=== PATIENT | female | born 1950 | race Caucasian/White ===

== ENCOUNTER 2018-12-09 00:08 | Inpatient (IN) | payer MEDICARE ==
[2018-12-09] MEDS ORDERED: NALOXONE 0.4 MG/ML 1 ML VIAL IV PRN (00:29)
--- NOTE | 2018-12-09 00:29 | ED ---
Arrhythmia/Palpitations HPI - General Stated Complaint: Chest Pain/ AFib Time Seen by Provider: 12/09/18 00:08 Source: patient, RN/MD, EMS, RN notes reviewed, old records reviewed Mode of arrival: EMS - History of Present Illness Initial Comments: This is a 68-year-old female who was transferred from [facility] after she was evaluated found have atrial fibrillation with rapid ventricular resp onse. She did respond to fluids. Her rate did drop to about 90 bpm but she was still in atrial fibrillation she was having episodes of chest pain. She did eat a "edible cookie" which has marijuana in it. She denies any other drugs or alcohol at this time. This is not new to her she states. She states she did have some chest pain and route currently none. MD Complaint: rapid heart beat, palpitations Review of Systems ROS Statement: Those systems with pertinent positive or pertinent negative responses have been documented in the HPI. ROS Other: All systems not noted in ROS Statement are negative. General Exam - General Exam Comments Initial Comments: This is a well-developed well-nourished awake alert oriented 3 female General appearance: alert, in no apparent distress Head exam: Present: atraumatic, normocephalic, normal inspection Eye exam: Present: normal appearance, PERRL, EOMI. Absent: scleral icterus, conjunctival injection, periorbital swelling ENT exam: Present: normal exam, mucous membranes moist Neck exam: Present: normal inspection. Absent: tenderness, meningismus, lymphadenopathy Respiratory exam: Present: normal lung sounds bilaterally. Absent: respiratory distress, wheezes, rales, rhonchi, stridor Cardiovascular Exam: Present: irregular rhythm. Absent: systolic murmur, diastolic murmur, rubs, gallop, clicks GI/Abdominal exam: Present: soft, normal bowel sounds. Absent: distended, tenderness, guarding, rebound, rigid Extremities exam: Present: normal inspection, full ROM, normal capillary refill. Absent: tenderness, pedal edema, joint swelling, calf tenderness Back exam: Present: normal inspection Neurological exam: Present: alert, oriented X3, CN II-XII intact Psychiatric exam: Present: normal affect, normal mood Skin exam: Present: warm, dry, intact, normal color. Absent: rash EKG Findings - EKG Results: EKG: interpreted by NARGIS (Patient does demonstrate atrial fibrillation rate 75 QRS 84 QT since QTC 360/410 minimal voltage criteria for LVH this is compared with the EKG sent from the sending facility) Medical Decision Making - Medical Decision Making Did review the imaging as well as the materials from the hospital I had previous ly discuss the case with Dr. Pacheco patient will be admitted with cardiology consultation. Disposition Clinical Impression: Atrial fibrillation, Rapid atrial fibrillation, Chest pain Disposition: ADMITTED IP TO THIS HOSP Condition: Stable Referrals: None,Stated [Primary Care Provider] - 1-2 days
[2018-12-09] MEDS ORDERED: NITROGLYCERIN SL TABS 0.4 MG TAB SUBLINGUAL PRN (00:36)
[2018-12-09] MEDS: SODIUM CHLORIDE 0.9% 1,000 ML IV SCH ×2 (01:00→22:39)
[2018-12-09 08:49] LABS: Basophils % (A) 0 %; Eosinophils # (A) 0.1 k/uL (0-0.7); Eosinophils % (A) 2 %; HCT 37.6 % (34.0-46.0); HGB 11.7 gm/dL (11.4-16.0); Hypochromasia Slight; Lymphocytes # (A) 2.3 k/uL (1.0-4.8); Lymphocytes % (A) 39 %; MCH 27.6 pg (25.0-35.0); MCHC 31.2 g/dL (31.0-37.0); MCV 88.5 fL (80.0-100.0); Mean Platelet Volume 7.3; Monocytes # (A) 0.3 k/uL (0-1.0); Monocytes % (A) 5 %; Neutrophils % (A) 51 %; Platelet Count 204 k/uL (150-450); RBC 4.25 m/uL (3.80-5.40); RDW 13.1 % (11.5-15.5); WBC 5.9 k/uL (3.8-10.6)
[2018-12-09 08:54] LABS: African American GFR (CKD) >90 (>60 ml/min/1.73 sqM); Anion Gap 5 mmol/L; Blood Urea Nitrogen 16 mg/dL (7-17); Calcium 9.3 mg/dL (8.4-10.2); Carbon Dioxide 30 mmol/L (22-30); Chloride 107 mmol/L (98-107); Glucose 98 mg/dL (74-99); Non-African American GFR(CKD) 82 (>60 ml/min/1.73 sqM); Potassium 4.2 mmol/L (3.5-5.1); Sodium 142 mmol/L (137-145)
[2018-12-09] MEDS ORDERED: ENOXAPARIN 80 MG/0.8 ML SYRINGE SQ SCH (09:00)
[2018-12-09] MEDS ORDERED: ASPIRIN 325 MG TAB PO SCH (09:00)
--- NOTE | 2018-12-09 10:01 | P.CRDCN ---
History of Present Illness Consult date: 12/09/18 Requesting physician: Rebeca Ferris Consult reason: atrial fibrillation Chief complaint: Generalized body aches History of present illness: This is a 68-year-old female with history of fibromyalgia, she also states she has history of hypertension but does not take any medication for this , she is a nondiabetic, no hyperlipidemia, nonsmoker, she does also have history of rheumatoid arthritis. According to the patient, she ate a cookie that had marijuana and its, following that she became very dizzy and lightheaded, developed some shortness of breath, for this reason went to the hospital and [place] for further evaluation and treatment. Her blood pressure on arrival here was 138/80, heart rate 100, respirations 18, afebrile. Urinalysis was performed which came back to be negative. Drug screen was performed which came back to be negative. Sodium 139, potassium 3.4, chloride 103, CO2 28, BUN 20, creatinine 0.9, troponin 0.017. Magnesium 1.8, white blood cell count 7.6, hemoglobin 12.3, platelet count 229. EKG performed at [place] showed atrial fibrillation with a moderately rapid ventricular response, occasional PVCs. Subsequent EKG continued to show atrial fibrillation. White blood cell count 5.9, hemoglobin 11.7, platelet 204, sodium 142, potassium 4.2, BUN 16, creatinine 0.7. Troponin 0.012, 0.012. Patient denies any prior history of atrial fibrillation Past Medical History Past Medical History: Chest Pain / Angina, Hypertension, Rheumatoid Arthritis (RA) Additional Past Medical History / Comment(s): Afib ( 12/2018), fibromyalgia, chronic back pain History of Any Multi-Drug Resistant Organisms: None Reported Past Surgical History: Tubal Ligation Additional Past Surgical History / Comment(s): maurice cataract removal Smoking Status: Former smoker - Past Family History Mother Family Medical History: Congestive Heart Failure (CHF) Additional Family Medical History / Comment(s): "her body shuts down" Medications and Allergies Home Medications Medication Instructions Recorded Confirmed Type Naproxen Sodium [Aleve] 220 mg PO BID PRN 12/09/18 12/09/18 History Allergies Allergy/AdvReac Type Severity Reaction Status Date / Time aspirin AdvReac Nausea & Verified 12/09/18 09:07 Vomiting & Diarrhea ibuprofen [From Motrin] AdvReac Nausea & Verified 12/09/18 09:07 Vomiting & Diarrhea Physical Exam Vitals: Vital Signs Temp Pulse Pulse Resp BP BP Pulse Ox 12/09/18 08:15 97.5 F L 72 16 146/70 95 12/09/18 04:00 97.5 F L 64 18 114/70 95 12/09/18 03:06 97.1 F L 73 18 158/73 97 12/09/18 02:40 98.3 F 78 18 130/82 69 L 12/09/18 01:40 80 18 147/104 96 12/09/18 00:40 92 18 137/100 97 12/09/18 00:15 97.9 F 78 18 144/95 97 Intake and Output 12/08/18 12/09/18 12/09/18 22:59 06:59 14:59 Intake Total 240 0 Balance 240 0 Intake: Intake, IV Titration 240 Amount Sodium Chloride 0.9% 1, 240 000 ml @ 80 mls/hr IV . [id number] [facility] Rx#:[id number] Oral 0 Other: Weight 74.9 kg PHYSICAL EXAMINATION: GENERAL: 68-year-old female in no acute chest examination HEENT: Head is atraumatic, normocephalic. Pupils equal, round. Sclera anicteric. Conjunctiva are clear. Mucous membranes of the mouth are moist. Neck is supple. There is no elevated jugular venous pressure. No carotid bruit is heard. HEART EXAMINATION: [Heart S1 and S2 irregularly irregular CHEST EXAMINATION:[Lungs are clear to auscultation and precussion. No chest wall tenderness is noted on palpation or with deep breathing.] ABDOMEN: [Soft, nontender. Bowel sounds are heard. No organomegaly noted] EXTREMITIES:[2+ peripheral pulses with no evidence of peripheral edema and no calf tenderness noted] NEUROLOGIC [atient is awake, alert and oriented 3. . Results 12/09/18 08:20 12/09/18 08:20 Cardiac Enzymes 12/09/18 12/09/18 Range/Units 01:25 08:20 Troponin I <0.012 <0.012 (0.000-0.034) ng/mL CBC 12/09/18 Range/Units 08:20 WBC 5.9 (3.8-10.6) k/uL RBC 4.25 (3.80-5.40) m/uL Hgb 11.7 (11.4-16.0) gm/dL Hct 37.6 (34.0-46.0) % Plt Count 204 (150-450) k/uL Comprehensive Metabolic Panel 12/09/18 Range/Units 08:20 Sodium 142 (137-145) mmol/L Potassium 4.2 (3.5-5.1) mmol/L Chloride 107 (98-107) mmol/L Carbon Dioxide 30 (22-30) mmol/L BUN 16 (7-17) mg/dL Creatinine 0.76 (0.52-1.04) mg/dL Glucose 98 (74-99) mg/dL Calcium 9.3 (8.4-10.2) mg/dL Current Medications Generic Name Dose Route Start Last Admin Trade Name Freq PRN Reason Stop Dose Admin Aspirin 325 mg 12/09/18 09:00 Aspirin PO DAILY JARRED Enoxaparin Sodium 70 mg 12/09/18 09:00 Lovenox SQ Q12HR JARRED Sodium Chloride 1,000 mls @ 80 mls/hr 12/09/18 00:30 12/09/18 01:00 Saline 0.9% IV 80 mls/hr .[id number] JARRED Administration Naloxone HCl 0.2 mg 12/09/18 00:29 Narcan IV Q2M PRN Opioid Reversal Nitroglycerin 0.4 mg 12/09/18 00:36 Nitrostat SUBLINGUAL Q5M PRN Chest Pain Intake and Output 12/08/18 12/09/18 12/09/18 22:59 06:59 14:59 Intake Total 240 0 Balance 240 0 Intake: Intake, IV Titration 240 Amount Sodium Chloride 0.9% 1, 240 000 ml @ 80 mls/hr IV . [id number] JARRED Rx#:[id number] Oral 0 Other: Weight 74.9 kg 12/09/18 08:20 12/09/18 08:20 EKG Interpretations (text) EKG shows atrial fibrillation with moderately rapid ventricular response Assessment and Plan Plan: Assessment and plan #1 persistent atrial fibrillation, appears to be of new onset #2 hypertension, untreated #3 marijuanna use #4 fibromyalgia #5 rheumatoid arthritis Plan We will obtain an echocardiogram with Doppler study as well as a TSH level. We will look into coverage for anticoagulation, discontinue the aspirin. Check TSH level. Initiate low-dose beta neftali. Further recommendations to follow. DNP note has been reviewed, I agree with a documented findings and plan of care. Patient was seen and examined.
[2018-12-09] MEDS: METOPROLOL TARTRATE 25 MG TAB PO SCH ×2 (11:24→20:02)
[2018-12-09] MEDS: APIXABAN 5 MG TAB PO SCH ×2 (11:25→20:02)
[2018-12-09] MEDS ORDERED: LORATADINE-PSEUDOEPH 5-120 MG 1 EACH TAB.ER.12H PO PRN (12:14)
[2018-12-09] MEDS: IBUPROFEN 400 MG TAB PO SCH ×2 (16:58→22:39)
--- NOTE | 2018-12-09 17:04 | P.HPIM ---
History of Present Illness H&P Date: 12/09/18 68-year-old female with history of fibromyalgia, she also states she has history of hypertension but does not take any medication for this, she is a nondiabetic, no hyperlipidemia, nonsmoker, she does also have history of rheumatoid arthritis. According to the patient, she ate a cookie that had marijuana and its, following that she became very dizzy and lightheaded, developed some shortness of breath, for this reason went to the hospital and [place] for further evaluation and treatment. Her blood pressure on arrival here was 138/80, heart rate 100, respirations 18, afebrile. Urinalysis was performed which came back to be negative. Drug screen was performed which came back to be negative. Sodium 139, potassium 3.4, chloride 103, CO2 28, BUN 20, creatinine 0.9, troponin 0.017. Magnesium 1.8, white blood cell count 7.6, hemoglobin 12.3, platelet count 229. EKG performed at [place] showed atrial fibrillation with a moderately rapid ventricular response, occasional PVCs. Subsequent EKG continued to show atrial fibrillation. White blood cell count 5.9, hemoglobin 11.7, platelet 204, sodium 142, potassium 4.2, BUN 16, creatinine 0.7. Troponin 0.012, 0.012. Patient denies any prior history of atrial fibrillation Patient was started on IV Cardizem at outlying facility which was later discontinued with slowing of heart rate; patient was seen by cardiology and was recommended to be started on beta blockers and anticoagulation and echocardiogram for LV functioning Review of Systems Constitutional: Denies chills, Denies fever Eyes: denies blurred vision, denies decreased vision, denies loss of vision Ears: deny: decreased hearing Ears, nose, mouth and throat: Denies bleeding gums, Denies epistaxis, Denies sore throat Cardiovascular: Reports chest pain, Denies shortness of breath Respiratory: Denies cough with sputum Gastrointestinal: Denies abdominal pain, Denies nausea, Denies vomiting Genitourinary: Denies dysuria, Denies hematuria Musculoskeletal: Denies arm numbness/tingling, Denies frequent falls Past Medical History Past Medical History: Chest Pain / Angina, Hypertension, Rheumatoid Arthritis (RA) Additional Past Medical History / Comment(s): Afib ( 12/2018), fibromyalgia, chronic back pain History of Any Multi-Drug Resistant Organisms: None Reported Past Surgical History: Tubal Ligation Additional Past Surgical History / Comment(s): maurice cataract removal Smoking Status: Former smoker - Past Family History Mother Family Medical History: Congestive Heart Failure (CHF) Additional Family Medical History / Comment(s): "her body shuts down" Medications and Allergies Home Medications Medication Instructions Recorded Confirmed Type Naproxen Sodium [Aleve] 220 mg PO BID PRN 12/09/18 12/09/18 History Allergies Allergy/AdvReac Type Severity Reaction Status Date / Time aspirin AdvReac Nausea & Verified 12/09/18 09:07 Vomiting & Diarrhea ibuprofen [From Motrin] AdvReac Nausea & Verified 12/09/18 09:07 Vomiting & Diarrhea Physical Exam Vitals: Vital Signs Temp Pulse Pulse Resp BP BP Pulse Ox 12/09/18 08:15 97.5 F L 72 16 146/70 95 12/09/18 04:00 97.5 F L 64 18 114/70 95 12/09/18 03:06 97.1 F L 73 18 158/73 97 12/09/18 02:40 98.3 F 78 18 130/82 69 L 12/09/18 01:40 80 18 147/104 96 12/09/18 00:40 92 18 137/100 97 12/09/18 00:15 97.9 F 78 18 144/95 97 Intake and Output 12/08/18 12/09/18 12/09/18 22:59 06:59 14:59 Intake Total 240 0 Balance 240 0 Intake: Intake, IV Titration 240 Amount Sodium Chloride 0.9% 1, 240 000 ml @ 80 mls/hr IV . [id number] [facility] Rx#:[id number] Oral 0 Other: # Voids 1 # Bowel Movements 1 Weight 74.9 kg GENERAL: 68-year-old female in no acute chest examination HEENT: Head is atraumatic, normocephalic. Pupils equal, round. Sclera anicteric. Conjunctiva are clear. Mucous membranes of the mouth are moist. Neck is supple. There is no elevated jugular venous pressure. No carotid bruit is heard. HEART EXAMINATION: [Heart S1 and S2 irregularly irregular CHEST EXAMINATION:[Lungs are clear to auscultation and precussion. No chest wall tenderness is noted on palpation or with deep breathing.] ABDOMEN: [Soft, nontender. Bowel sounds are heard. No organomegaly noted] EXTREMITIES:[2+ peripheral pulses with no evidence of peripheral edema and no calf tenderness noted] NEUROLOGIC [atient is awake, alert and oriented 3. Results CBC & Chem 7: 12/09/18 08:20 12/09/18 08:20 Thrombosis Risk Factor Assmnt - Choose All That Apply Any of the Below Risk Factors Present?: No Each Risk Factor Represents 2 Points: Age 61-74 years Other congenital or acquired thrombophilia - If yes, enter type in comment: No Thrombosis Risk Factor Assessment Total Risk Factor Score: 2 Thrombosis Risk Factor Assessment Level: Low Risk Assessment and Plan Assessment: 1. A. fib with RVR; - Metoprolol tartrate 25 mg twice a day; anticoagulation in form of Eliquis 5 mg twice a day 2. Chest pain possibly secondary to 1 versus acute coronary syndrome - Possibly secondary to atrial fibrillation with RVR; troponin has been trended and has been unremarkable; cardiology is following; echocardiogram is done and results are pending; further recommendations after echo results are available 3. Substance abuse; consult [employer] for outpatient resources 4. Hypertension; Lopressor 25 mg twice a day; monitor blood pressure closely and adjust medication if needed 5. History of rheumatoid arthritis/ chronic back pain - Patient takes Aleve 220 mg twice a day 6. DVT prophylaxis; systemic anticoagulation CODE STATUS; full code Time with Patient: Greater than 30
--- NOTE | 2018-12-09 19:31 | ECHOF ---
Referral Reason:afib MEASUREMENTS -------- HEIGHT: 160.0 cm WEIGHT: 74.8 kg BP: IVSd: 1.1 cm (0.6 - 1.1) LVIDd: 3.5 cm (3.9 - 5.3) LVPWd: 1.0 cm (0.6 - 1.1) IVSs: 1.7 cm LVIDs: 2.2 cm LVPWs: 1.4 cm Ao Diam: 2.7 cm (2.0 - 3.7) AV Cusp: 1.9 cm (1.5 - 2.6) LA Diam: 3.6 cm (2.7 - 3.8) RAP: 5.00 mmHg RVSP: 28.15 mmHg FINDINGS -------- Atrial fibrillation. This was a technically difficult study with suboptimal views. The left ventricular size is normal. There is mild concentric left ventricular hypertrophy. Overa ll left ventricular systolic function is normal with, an EF between 55 - 60 %. The right ventricle is normal in size. The left atrial size is normal. The right atrial size is normal. Lumason used The aortic valve is trileaflet and appears structurally normal. The mitral valve is normal. There is trace mitral regurgitation. Trace tricuspid regurgitation present. Right ventricular systolic pressure is normal at < 35 mmHg. There is no pulmonic regurgitation present. The aortic root size is normal. Normal inferior vena cava with normal inspiratory collapse consistent with estimated right atrial pre ssure of 5 mmHg. There is no pericardial effusion. CONCLUSIONS -------- 1. Atrial fibrillation. 2. This was a technically difficult study with suboptimal views. 3. The left ventricular size is normal. 4. There is mild concentric left ventricular hypertrophy. 5. Overall left ventricular systolic function is normal with, an EF between 55 - 60 %. 6. The right ventricle is normal in size. 7. The left atrial size is normal. 8. The right atrial size is normal. 9. Lumason used 10. The aortic valve is trileaflet and appears structurally normal. 11. The mitral valve is normal. 12. There is trace mitral regurgitation. 13. Trace tricuspid regurgitation present. 14. Right ventricular systolic pressure is normal at < 35 mmHg. 15. There is no pulmonic regurgitation present. 16. The aortic root size is normal. 17. Normal inferior vena cava with normal inspiratory collapse consistent with estimated right atrial pressure of 5 mmHg. 18. There is no pericardial effusion. [employer]ISHER: Linda Skaggs RDCS
[2018-12-09] MEDS ORDERED: ACETAMINOPHEN TAB 325 MG TAB PO PRN (22:38)
[2018-12-10] MEDS: SODIUM CHLORIDE 0.9% 1,000 ML IV SCH (05:42)
[2018-12-10 07:00] LABS: Basophils % (A) 0 %; Eosinophils # (A) 0.1 k/uL (0-0.7); Eosinophils % (A) 3 %; HCT 37.2 % (34.0-46.0); HGB 11.6 gm/dL (11.4-16.0); Hypochromasia Slight; Lymphocytes % (A) 42 %; MCH 27.8 pg (25.0-35.0); MCHC 31.3 g/dL (31.0-37.0); MCV 88.9 fL (80.0-100.0); Mean Platelet Volume 7.3; Monocytes # (A) 0.3 k/uL (0-1.0); Monocytes % (A) 5 %; Neutrophils # (A) 2.4 k/uL (1.3-7.7); Neutrophils % (A) 48 %; Platelet Count 200 k/uL (150-450); RBC 4.18 m/uL (3.80-5.40); RDW 13.2 % (11.5-15.5); WBC 4.9 k/uL (3.8-10.6)
[2018-12-10 07:11] LABS: African American GFR (CKD) >90 (>60 ml/min/1.73 sqM); Blood Urea Nitrogen 16 mg/dL (7-17); Calcium 8.8 mg/dL (8.4-10.2); Carbon Dioxide 27 mmol/L (22-30); Chloride 107 mmol/L (98-107); Cholesterol 161 mg/dL (<200); Glucose 98 mg/dL (74-99); Non-African American GFR(CKD) 83 (>60 ml/min/1.73 sqM); Potassium 4.3 mmol/L (3.5-5.1); Triglycerides 94 mg/dL (<150)
[2018-12-10 07:45] LABS: HDL Cholesterol 36 mg/dL (40-60); LDL Cholesterol,Calculated 106 mg/dL (0-99)
[2018-12-10 07:50] LABS: Anion Gap 6 mmol/L; Sodium 140 mmol/L (137-145)
[2018-12-10] MEDS: IBUPROFEN 400 MG TAB PO SCH (09:49)
[2018-12-10] MEDS: METOPROLOL TARTRATE 25 MG TAB PO SCH (10:11)
[2018-12-10] MEDS: APIXABAN 5 MG TAB PO SCH (10:11)
--- NOTE | 2018-12-10 11:35 | P.PN ---
Subjective Progress Note Date: 12/10/18 This is a 68-year-old female with history of fibromyalgia, she also states she has history of hypertension but does not take any medication for this, she is a nondiabetic, no hyperlipidemia, nonsmoker, she does also have history of rheumatoid arthritis. According to the patient, she ate a cookie that had marijuana and its, following that she became very dizzy and lightheaded, developed some shortness of breath, for this reason went to the hospital and [place] for further evaluation and treatment. Her blood pressure on arrival here was 138/80, heart rate 100, respirations 18, afebrile. Urinalysis was performed which came back to be negative. Drug screen was performed which came back to be negative. Sodium 139, potassium 3.4, chloride 103, CO2 28, BUN 20, creatinine 0.9, troponin 0.017. Magnesium 1.8, white blood cell count 7.6, hemoglobin 12.3, platelet count 229. EKG performed at [place] showed atrial fibrillation with a moderately rapid ventricular response, occasional PVCs. Subsequent EKG continued to show atrial fibrillation. White blood cell count 5.9, hemoglobin 11.7, platelet 204, sodium 142, potassium 4.2, BUN 16, creatinine 0.7. Troponin 0.012, 0.012. Patient denies any prior history of atrial fibrillation. 12/10/2018 Patient seen and examined this morning, continues to be in A. fib with a heart rate of 70. Blood pressure 132/80 with a heart rate of 80, 97% on room air. White blood cell count 4.9, hemoglobin 11.6, platelet count 200. Sodium 140, potassium 4.3, BUN 16 and creatinine 0.7. TSH level I.4. Echocardiogram with Doppler study was performed which revealed an ejection fraction of 55-60%. Patient has been initiated on anticoagulation in the form of Eliquis, we'll discontinue the Motrin, continue metoprolol. From our perspective she may be able to be discharged home. Follow-up appointment in the office post discharge. Objective - Vital Signs Vital signs: Vital Signs Temp 98.0 F 12/10/18 08:00 Pulse 87 12/10/18 08:00 Resp 19 12/10/18 08:00 BP 133/80 12/10/18 08:00 Pulse Ox 97 12/10/18 08:00 Intake & Output 12/09/18 12/10/18 12/10/18 18:59 06:59 18:59 Intake Total 720 358 Balance 720 358 Weight 75.9 kg Intake: Oral 720 358 Other: # Voids 2 1 1 # Bowel Movements 1 - Exam PHYSICAL EXAMINATION: GENERAL: 68-year-old female in no acute chest examination HEENT: Head is atraumatic, normocephalic. Pupils equal, round. Sclera anicteric. Conjunctiva are clear. Mucous membranes of the mouth are moist. Neck is supple. There is no elevated jugular venous pressure. No carotid bruit is heard. HEART EXAMINATION: [Heart S1 and S2 irregularly irregular CHEST EXAMINATION:[Lungs are clear to auscultation and precussion. No chest wall tenderness is noted on palpation or with deep breathing.] ABDOMEN: [Soft, nontender. Bowel sounds are heard. No organomegaly noted] EXTREMITIES:[2+ peripheral pulses with no evidence of peripheral edema and no calf tenderness noted] NEUROLOGIC [atient is awake, alert and oriented 3. - Labs CBC & Chem 7: 12/10/18 06:23 12/10/18 06:23 Labs: Abnormal Lab Results - Last 24 Hours (Table) 12/10/18 Range/Units 06:23 LDL Cholesterol, Calc 106 H (0-99) mg/dL HDL Cholesterol 36 L (40-60) mg/dL Assessment and Plan Plan: Assessment and plan #1 persistent atrial fibrillation, appears to be of new onset #2 hypertension, untreated #3 marijuanna use #4 fibromyalgia #5 rheumatoid arthritis Plan From cardiology's perspective, patient may be able to be discharged home today. We will continue Eliquis 5 mg one tablet by mouth twice a day along with metoprolol 25 mg twice a day. Follow-up appointment in the office in 2 weeks. DNP note has been reviewed, I agree with a documented findings and plan of care. Patient was seen and examined.
[2018-12-10 11:41] VITALS: BP 115/61; PULSE 60; RESP 17; TEMP 97.9
--- NOTE | 2018-12-23 12:40 | P.DS ---
Providers Date of admission: 12/09/18 00:36 Expected date of discharge: 12/10/18 Attending physician: Megan Pacheco MD Consults: 12/09/18 00:31 Consult Physician Routine Consulting Provider: Arya Perez Consult Reason/Comments: New-onset atrial fibrillation Do you want consulting provider notified?: Yes, Notify in am Primary care physician: Stated None Hospital Course: 68-year-old female with history of fibromyalgia, she also states she has history of hypertension but does not take any medication for this, she is a nondiabetic, no hyperlipidemia, nonsmoker, she does also have history of rheumatoid arthritis. According to the patient, she ate a cookie that had marijuana and its, following that she became very dizzy and lightheaded, developed some shortness of breath, for this reason went to the hospital and [place] for further evaluation and treatment. Her blood pressure on arrival here was 138/80, heart rate 100, respirations 18, afebrile. Urinalysis was performed which came back to be negative. Drug screen was performed which came back to be negative. Sodium 139, potassium 3.4, chloride 103, CO2 28, BUN 20, creatinine 0.9, troponin 0.017. Magnesium 1.8, white blood cell count 7.6, hemoglobin 12.3, platelet count 229. EKG performed at [place] showed atrial fibrillation with a moderately rapid ventricular response, occasional PVCs. Subsequent EKG continued to show atrial fibrillation. White blood cell count 5.9, hemoglobin 11.7, platelet 204, sodium 142, potassium 4.2, BUN 16, creatinine 0.7. Troponin 0.012, 0.012. Patient denies any prior history of atrial fibrillation. 12/10/2018 Patient seen and examined this morning, continues to be in A. fib with a heart rate of 70. Blood pressure 132/80 with a heart rate of 80, 97% on room air. White blood cell count 4.9, hemoglobin 11.6, platelet count 200. Sodium 140, potassium 4.3, BUN 16 and creatinine 0.7. TSH level I.4. Echocardiogram with Doppler study was performed which revealed an ejection fraction of 55-60%. Patient has been initiated on anticoagulation in the form of Eliquis, we'll discontinue the Motrin, continue metoprolol. From our perspective she may be able to be discharged home. Follow-up appointment in the office post discharge. Patient Condition at Discharge: Stable Plan - Discharge Summary Discharge Rx Participant: No New Discharge Prescriptions: New Apixaban [Eliquis] 5 mg PO BID #60 tab Metoprolol Tartrate [Lopressor] 25 mg PO BID #60 tab Continue Naproxen Sodium [Aleve] 220 mg PO BID PRN PRN Reason: Pain Discharge Medication List Naproxen Sodium [Aleve] 220 mg PO BID PRN 12/09/18 [History] Apixaban [Eliquis] 5 mg PO BID #60 tab 12/10/18 [Rx] Metoprolol Tartrate [Lopressor] 25 mg PO BID #60 tab 12/10/18 [Rx] Follow up Appointment(s)/Referral(s): Roel Abdi MD [STAFF PHYSICIAN] - 1 Week None,Stated [Primary Care Provider] - 1-2 days Patient Instructions/Handouts: A-fib (Atrial Fibrillation) (DC), Chest Pain (D C) Discharge Disposition: HOME SELF-CARE
== END 2018-12-10 14:25 | disposition home or self-care (01) | DRG 310 ==
LOC: EC 00:08 → 3SCARD 00:36
PROVIDERS: ADMIT Internal Medicine; ATTEND Internal Medicine
DX: I48.1 Persistent atrial fibrillation (principal); G89.29 Other chronic pain; I10 Essential (primary) hypertension; I49.3 Ventricular premature depolarization; M79.7 Fibromyalgia; M06.9 Rheumatoid arthritis, unspecified; M54.9 Dorsalgia, unspecified; Z87.891 Personal history of nicotine dependence; Z98.51 Tubal ligation status; Z98.42 Cataract extraction status, left eye; Z98.41 Cataract extraction status, right eye; Z88.8 Allergy status to other drugs, medicaments and biological substances; Z82.49 Family history of ischemic heart disease and other diseases of the circulatory system
CPT/HCPCS: 36415; 80048; 80061; 84443; 84484; 85025; 93005; 93306; 99285

== ENCOUNTER → 2020-11-20 | Outpatient (CLI) | payer MEDICARE ==
--- NOTE | 2020-11-21 11:47 | NM ---
EXAMINATION TYPE: NM DatScan Brain SPECT DATE OF EXAM: 11/20/2020 COMPARISON: NONE HISTORY: G 25.0, tremor TECHNIQUE: 10 drops of Lugol's solution was administered 1 hour prior to injection as a thyroid bloc tracie agent. After the administration of 4.55 mCi I-123 Ioflupane DaTscan. Images obtained 3 hours p ost injection. SPECT images of the brain were acquired with axial and coronal reconstructions. FINDINGS: Uptake within the striata is symmetric. Comma-shaped uptake is present bilaterally. IMPRESSION: Normal SONA scan
== END | disposition home or self-care (01) ==
LOC: RADNMMAIN 10:49
PROVIDERS: ATTEND Psychiatry & Neurology Neurology
DX: G25.0 Essential tremor (principal)
CPT/HCPCS: 78803; A9584